=== PATIENT | male | born 2000 | race African-American/Black ===

== ENCOUNTER 2018-02-09 13:11 | Emergency (ER) | payer BC ==
--- NOTE | 2018-02-09 13:55 | UC ---
Throat Pain/Nasal Jean HPI - HPI Summary HPI Summary: 17 yo male presents with sore throat for the last 4 days. He tells me that about 1.5 months ago he was dx'd with strep and placed on amoxicillin for 10 days. He admits that he did not take this as prescribed and missed a few days in between and finished the rx in about 13-14 days. His sore throat resolved. About 2 weeks after that he began to have a sore throat again and tested positive for strep. This time he thinks he was given keflex for 10 days, which he took as prescribed and his sore throat resolved. Over the last 4 days pt's sore throat has returned and he feels feverish. He is able to eat and drink, but has pain when doing so. He has not taken anything OTC for his fever or discomfort. Says that he has not washed or changed his toothbrush/water bottle. Denies sinus symptoms, cough, SOB, chest pain, n/v, or rash. - History of Current Complaint Stated Complaint: SORE THROAT Time Seen by Provider: 02/09/18 13:55 Hx Obtained From: Patient Onset/Duration: Gradual Onset Severity: Moderate Pain Intensity: 8 Pain Scale Used: 0-10 Numeric - Allergies/Home Medications Allergies/Adverse Reactions: Allergies Allergy/AdvReac Type Severity Reaction Status Date / Time amoxicillin Allergy Rash Verified 02/09/18 14:01 PMH/Surg Hx/FS Hx/Imm Hx - Additional Past Medical History Additional PMH: None - Surgical History Surgical History: None - Family History Known Family History: Positive: None - Social History Occupation: Student Lives: With Family Alcohol Use: None Substance Use Type: None Smoking Status (MU): Never Smoked Tobacco Review of Systems All Other Systems Reviewed And Are Negative: Yes Constitutional: Positive: Fever Skin: Positive: Negative Eyes: Positive: Negative ENT: Positive: Sore Throat Respiratory: Positive: Negative Cardiovascular: Positive: Negative Gastrointestinal: Positive: Negative Neurovascular: Positive: Negative Neurological: Positive: Negative Psychological: Positive: Negative Physical Exam - Summary Physical Exam Summary: GENERAL: NAD. WDWN. No pain distress. SKIN: No rashes, sores, lesions, or open wounds. HEENT: Head: AT/NC Eyes: Conjunctiva clear without inflammation or discharge. Ears: Hearing grossly normal. TMs intact, no bulging, erythema, or edema. Nose: Nasal mucosa pink and moist. NTTP maxillary and frontal sinus. Throat: Posterior oropharynx moderate erythema and 2+ tonsillar enlargement. Mild white exudates. Uvula midline. No hoarse voice or muffled voice. NECK: Supple. Mild TTP tonsillar LAD CHEST: CTAB. No r/r/w. No accessory muscle use. Breathing comfortably and in no distress. CV: RRR. Without m/r/g. Pulses intact. Cap refill <2seconds NEURO: Alert. PSYCH: Age appropriate behavior. Triage Information Reviewed: Yes Vital Signs: Laboratory Tests 02/09/18 14:11 Group A Strep Rapid Negative Vital Signs: Temp Pulse Resp BP Pulse Ox 102 F 103 16 142/62 99 02/09/18 14:01 02/09/18 14:01 02/09/18 14:01 02/09/18 14:01 02/09/18 14:01 Vital Signs Reviewed: Yes Throat Pain/Nasal Course/Dx - Course Course Of Treatment: POC strep negative, however given recent issues with strep and clinical exam - will treat as strep and send for full throat culture. He was given tylenol in the clinic for his fever. Strongly advised to change his toothbrush and wash all bottles/utensils. - Differential Dx/Diagnosis Provider Diagnosis: Sore throat Discharge - Sign-Out/Discharge Documenting (check all that apply): Patient Departure All imaging exams completed and their final reports reviewed: No Studies - Discharge Plan Condition: Stable Disposition: HOME Prescriptions: Clindamycin Cap(NF) [Clindamycin Cap 300 mg Cap(NF)] 300 mg PO TID #21 cap Patient Education Materials: Pharyngitis (ED), Strep Throat (DC) Referrals: No Primary Care Phys,NOPCP [Primary Care Provider] - Additional Instructions: If you develop a fever, shortness of breath, chest pain, new or worsening symptoms - please call your PCP or go to the ED. Alternate tylenol and ibuprofen to reduce your fever and reduce pain If your symptoms worsen or do not improve in 3-4 days, please be rechecked - Billing Disposition and Condition Condition: STABLE Disposition: Home
[2018-02-09 14:04] VITALS: BP 142/62
[2018-02-09] MEDS ORDERED: Acetaminophen TAB* 325 MG PO ONE (14:06)
[2018-02-09 18:28] LABS: Hematocrit 44 % (42-52); Hemoglobin 15.1 g/dl (14.0-18.0); Mean Corpuscular HGB Conc 35 g/dl (31-36); Mean Corpuscular Hemoglobin 31 pg (27-31); Mean Corpuscular Volume 91 fL (80-94); Mean Platelet Volume 8.3 fL (7.4-10.4); Platelet Count 208 10^3/ul (150-450); Red Blood Count 4.79 10^6/ul (4.00-5.40); Red Cell Distribution Width 13 % (10.5-15); White Blood Count 11.6 10^3/ul (3.5-10.8)
[2018-02-09 19:35] LABS: ABS Basophils 0 10^3/ul (0-0.2); ABS Eosinophils 0 10^3/ul (0-0.6); ABS Lymphocytes 2.1 10^3/ul (1.0-4.8); ABS Monocytes 1.9 10^3/ul (0-0.8); ABS Neutrophils 7.6 10^3/ul (1.5-7.7); ABS Nucleated RBC 0 10^3/ul; Eosinophil % 0 %; Lymphocyte % 17.7 %; Nucleated Red Blood Cells % 0
--- NOTE | 2018-02-10 07:04 | UC ---
- Progress Note Progress Note: cbc reviewed, slightly elevated wbc monospot neg Steve 02/10/18 Course/Dx - Diagnoses Provider Diagnoses: Sore throat Discharge - Sign-Out/Discharge Documenting (check all that apply): Post-Discharge Follow Up All imaging exams completed and their final reports reviewed: No Studies - Discharge Plan Condition: Stable Disposition: HOME Prescriptions: Clindamycin Cap(NF) [Clindamycin Cap 300 mg Cap(NF)] 300 mg PO TID #21 cap Patient Education Materials: Pharyngitis (ED), Strep Throat (DC) Referrals: No Primary Care Phys,NOPCP [Primary Care Provider] - Additional Instructions: If you develop a fever, shortness of breath, chest pain, new or worsening symptoms - please call your PCP or go to the ED. Alternate tylenol and ibuprofen to reduce your fever and reduce pain If your symptoms worsen or do not improve in 3-4 days, please be rechecked - Billing Disposition and Condition Condition: STABLE Disposition: Home
[2018-02-11 15:16] LABS: EBV Capsid Ag IgG Ab Positive (Negative); EBV Capsid Ag IgM Ab Positive (Negative); Epstein-Barr Nuclear Antigen Negative (Negative)
== END 2018-02-09 14:52 | disposition home or self-care (01) ==
LOC: UCEAST 13:11
DX: J02.9 Acute pharyngitis, unspecified (principal); Z88.0 Allergy status to penicillin
CPT/HCPCS: 36415; 85025; 86308; 86664; 86665; 87070; 87651; 99212; A9270-GY; G0463